=== PATIENT | male | born 1950 | race Caucasian/White ===

== ENCOUNTER → 2016-06-06 | Outpatient (CLI) | payer MEDICARE | END | disposition home or self-care (01) | LOC: PCVCIMAG 10:39 | PROVIDERS: ATTEND Internal Medicine Cardiovascular Disease | DX: I42.9 Cardiomyopathy, unspecified (principal); I10 Essential (primary) hypertension; E78.00 Pure hypercholesterolemia, unspecified; E11.9 Type 2 diabetes mellitus without complications; R60.9 Edema, unspecified | CPT/HCPCS: 93306; G0463 ==

== ENCOUNTER → 2016-11-18 | Outpatient (CLI) | payer MEDICARE ==
--- NOTE | 2016-11-18 12:54 | PCVCIMAG ---
APPROVED REPORT Study performed: 11/18/2016 09:45:03 EXAM: Comprehensive 2D, Doppler, and color-flow Echocardiogram Patient Location: Echo lab Status: routine Other Information Study Quality: Adequate Risk Factors: Cardiac Risk Factors: HTN Indications Diabetes HOCM 2D Dimensions LVEF(%): 52.59 (>50%) IVSd: 13.97 (7-11mm) LVDd: 43.95 mm PWd: 12.30 (7-11mm)Ascending Ao: 34.00 (22-36mm) LVDs: 32.16 (25-40mm) Left Atrium: 44.01 (27-40mm) Aortic Root: 26.45 mm LV Single Plane 4CH: 59.19 % LV Single Plane 2CH: 56.72 %Hendrix's LVEF: 57.96 % Biplane EF: 58.1 % Volumes Left Atrial Volume (Systole) Single Plane 4CH: 78.58 mLSingle Plane 2CH: 79.98 mL LA ESV Index: 40.00 mL/m2 Aortic Valve AoV Peak Deric.: 1.43 m/s AO Peak Gr.: 8.17 mmHgLVOT Max P.56 mmHg LVOT Max V: 0.94 m/s Mitral Valve E/A Ratio: 0.9 MV Decel. Time: 220.52 ms MV E Max Deric.: 0.83 m/s MV A Deric.: 0.95 m/s MV PHT: 63.95 ms IVRT: 110.73 ms Pulmonary Valve PV Peak Deric.: 0.75 m/sPV Peak Gr.: 2.25 mmHg Pulmonary Vein P Vein S: 0.78 m/sP Vein A: 0.30 m/s P Vein D: 0.74 m/sP Vein A Dur.: 141.9 msec P Vein S/D Ratio: 1.05 Tricuspid Valve TR Peak Deric.: 2.72 m/s TR Peak Gr.: 29.59 mmHg Left Ventricle The left ventricle is normal size. There is normal LV segmental wall motion. Mild concentric left ventricular hypertrophy. Left ventricular systolic function is normal. The left ventricular ejection fraction is within the normal range. LVEF is 55-60%. Grade I - abnormal relaxation pattern. Right Ventricle The right ventricle is normal size. The right ventricular systolic function is normal. Atria Left atrium is moderately dilated. The right atrium size is normal. Aortic Valve The aortic valve is normal in structure. No aortic regurgitation is present. There is no aortic valvular stenosis. Mitral Valve The mitral valve is normal in structure. Mild mitral regurgitation. No evidence of mitral valve stenosis. Tricuspid Valve The tricuspid valve is normal in structure. Mild tricuspid regurgitation with PAP of 37 mmHg. Pulmonic Valve The pulmonary valve is normal in structure. There is no pulmonic valvular regurgitation. Great Vessels The aortic root is normal in size. IVC is normal in size and collapses with >50% inspiration Pericardium There is no pericardial effusion. <Conclusion> The left ventricle is normal size. Mild concentric left ventricular hypertrophy. Left ventricular systolic function is normal. Grade I - abnormal relaxation pattern. The right ventricle is normal size. Left atrium is moderately dilated. The aortic valve is normal in structure. Mild mitral regurgitation. Mild tricuspid regurgitation with PAP of 37 mmHg.
== END | disposition home or self-care (01) ==
LOC: PCVCIMAG 09:43
PROVIDERS: ATTEND Internal Medicine Cardiovascular Disease
DX: I08.1 Rheumatic disorders of both mitral and tricuspid valves (principal); I42.9 Cardiomyopathy, unspecified; E78.00 Pure hypercholesterolemia, unspecified; I49.3 Ventricular premature depolarization; I12.9 Hypertensive chronic kidney disease with stage 1 through stage 4 chronic kidney disease, or unspecified chronic kidney disease; E11.22 Type 2 diabetes mellitus with diabetic chronic kidney disease; N18.3 Chronic kidney disease, stage 3 (moderate); Z79.82 Long term (current) use of aspirin; Z79.84 Long term (current) use of oral hypoglycemic drugs
CPT/HCPCS: 93005; 93306; G0463

== ENCOUNTER → 2017-04-28 | Outpatient (CLI) | payer MEDICARE | END | disposition home or self-care (01) | LOC: PCVCCLINIC 10:27 | DX: I10 Essential (primary) hypertension (principal); I42.9 Cardiomyopathy, unspecified; E78.00 Pure hypercholesterolemia, unspecified; R60.9 Edema, unspecified; Z79.82 Long term (current) use of aspirin; Z79.899 Other long term (current) drug therapy; Z79.84 Long term (current) use of oral hypoglycemic drugs | CPT/HCPCS: 93005; G0463 ==

== ENCOUNTER → 2018-03-31 | Outpatient (CLI) | payer MEDICARE ==
--- NOTE | 2018-03-31 13:29 | PCVCIMAG ---
APPROVED REPORT Imaging Protocol: Rest Tc-99m/Stress Tc-99m 1 day Study performed: 03/31/2018 11:09:17 Indication: Cardiomyopathy Patient Location: Out-Patient Stress Nurse: Smitha Vargas RN, Reina Mujica RN [place] Tech:Johana Hernandez [facility] Ht: 5 ft 8 in Wt: 226 lbs BSA: 2.15 m2 HR: 87 bpm BP: 150/83 mmHg BMI: 34.35 Rhythm: Sinus Rhythm, Inf ST & T Abn Medical History Medical History: HTN, Hyperlipidemia, Diabetes, Age Medications: ASA, Atorvastatin, Lisinopril-HCTZ, Metformin, Metoprolol, Actos, Januvia Allergies: No known drug allergies Pretest Chest Pain Characteristics: No chest pain Exercise History: Physically active Resting Data Rest SPECT myocardial perfusion imaging was performed in supine position 45 minutes following the intravenous injection of 10.9 mCi of Tc-99m Sestamibi. Time of rest injection: 1000 Date: 03/31/2018 Administration Route: IV Administration Site: Right Hand Exercise Stress At peak stress, the patient was injected intravenously with 31.2mCi of Tc-99m Sestamibi. Time of stress injection: 1200 Administration Route: IV Administration Site: Right Hand Patient continued to exercise for 45 minute(s). The images were gated to evaluate regional wall motion and calculate left ventricular ejection fraction. Stress Test Details Stress Test: Exercise stress testing was performed using a Stephon protocol. HRMax Heart Rate (APMHR): 151 bpm Resting HR: 87 bpmTarget HR (85% APMHR): 128 bpm Max HR Achieved: 164 bpm % of APMHR: 108 Recovery HR: 100 bpm BP Resting BP: 150/83 mmHg Max BP: 210/100 mmHg Recovery BP: 153/96 mmHg BP response to stress: Abnormal hypertensive response to stress. ECG Resting ECG: Sinus Rhythm, Inf ST & T Abn Stress ECG: Sinus Rhythm, Inf ST & T Abn ST Change: Nondiagnostic resting ST abnormalities Recovery ECG: Sinus Rhythm, Inf ST & T Abn Clinical Reason for Termination: Dyspnea, Fatigue, High Blood Pressure Stress Symptoms: Dyspnea Exercise duration: 6 min 00 sec Exercise capacity: 7 METs Overall Exercise Capacity for Age: Average Scale: Active Angina Score: None Symptoms resolved during recovery. Study Quality Study: Good Study Data Post stress, the left ventricular ejection was 77%.. Perfusion Normal left ventricular perfusion. Normal perfusion on both the stress and rest images. Wall Motion Normal left ventricular wall motion. Nuclear Conclusion ECG Findings: non-diagnostic Clinical Findings: negative for ischemia Nuclear Findings: negative for ischemia Exercise Capacity: normal Left Ventricular Function: normal Risk Study: low This study is of low probability for inducible ischemia or prior infarct. Normal global and segmental LV systolic function.
== END | disposition home or self-care (01) ==
LOC: EDSTATUS 03-30 07:39 → PCVCIMAG 09:56
PROVIDERS: ATTEND Internal Medicine Cardiovascular Disease
DX: I11.9 Hypertensive heart disease without heart failure (principal); I10 Essential (primary) hypertension; E78.00 Pure hypercholesterolemia, unspecified; E11.9 Type 2 diabetes mellitus without complications; E78.5 Hyperlipidemia, unspecified; I25.5 Ischemic cardiomyopathy; Z79.82 Long term (current) use of aspirin; Z79.84 Long term (current) use of oral hypoglycemic drugs
CPT/HCPCS: 78452; 93017; A9500; G0463

== ENCOUNTER → 2019-04-06 | Outpatient (CLI) | payer MEDICARE ==
--- NOTE | 2019-04-06 13:37 | PCVCIMAG ---
APPROVED REPORT Study performed: 04/06/2019 12:54:04 EXAM: Comprehensive 2D, Doppler, and color-flow Echocardiogram Patient Location: Echo lab Status: routine BSA: 2.13 HR: 76 bpmBP: 126/72 mmHg Rhythm: NSR w/ PVCs Other Information Study Quality: Adequate Risk Factors: Cardiac Risk Factors: HTN, DM Indications Hypertrophic Cardiomyopathy 2D Dimensions IVSd: 16.12 (7-11mm) LVDd: 39.74 mm PWd: 14.88 (7-11mm)Ascending Ao: 33.16 (22-36mm) LVDs: 23.88 (25-40mm) Left Atrium: 39.84 (27-40mm) Aortic Root: 31.35 mm LV Single Plane 4CH: 56.86 % LV Single Plane 2CH: 59.32 % Biplane EF: 58.3 % Volumes Left Atrial Volume (Systole) Single Plane 4CH: 88.65 mLSingle Plane 2CH: 83.17 mL LA ESV Index: 40.00 mL/m2 Aortic Valve AoV Peak Deric.: 1.33 m/s AO Peak Gr.: 7.03 mmHgLVOT Max P.09 mmHg LVOT Max V: 0.99 m/s Mitral Valve E/A Ratio: 0.9 MV Decel. Time: 233.31 ms MV E Max Deric.: 0.80 m/s MV A Deric.: 0.90 m/s IVRT: 103.81 ms Pulmonary Valve PV Peak Deric.: 0.82 m/sPV Peak Gr.: 2.70 mmHg Pulmonary Vein P Vein S: 0.53 m/sP Vein A: 0.36 m/s P Vein D: 0.58 m/sP Vein A Dur.: 159.2 msec P Vein S/D Ratio: 0.91 Tricuspid Valve TR Peak Deric.: 2.81 m/s TR Peak Gr.: 31.50 mmHg Left Ventricle The left ventricle is normal size. There is normal LV segmental wall motion. Mild concentric left ventricular hypertrophy. Left ventricular systolic function is normal. The left ventricular ejection fraction is within the normal range. LVEF is 60%. Grade I - abnormal relaxation pattern. Right Ventricle The right ventricle is normal size. The right ventricular systolic function is normal. Atria Left atrium is mildly dilated. Right atrium is mildly dilated. Aortic Valve Moderate aortic valve sclerosis. No aortic regurgitation is present. There is no aortic valvular stenosis. Mitral Valve The mitral valve is normal in structure. Mild mitral regurgitation. No evidence of mitral valve stenosis. Tricuspid Valve The tricuspid valve is normal in structure. Mild tricuspid regurgitation with PAP of 39 mmHg. Pulmonic Valve The pulmonary valve is normal in structure. Trace pulmonic regurgitation. Great Vessels The aortic root is normal in size. IVC is normal in size and collapses >50% with inspiration. Pericardium There is no pericardial effusion. There is no pleural effusion. <Conclusion> The left ventricle is normal size. Mild concentric left ventricular hypertrophy. Left ventricular systolic function is normal. Grade I - abnormal relaxation pattern. The right ventricle is normal size. Left atrium is mildly dilated. Moderate aortic valve sclerosis. Mild mitral regurgitation. Mild tricuspid regurgitation with PAP of 39 mmHg.
== END | disposition home or self-care (01) ==
LOC: PCVCIMAG 12:41
PROVIDERS: ATTEND Internal Medicine Cardiovascular Disease
DX: I08.3 Combined rheumatic disorders of mitral, aortic and tricuspid valves (principal); E78.5 Hyperlipidemia, unspecified; I13.10 Hypertensive heart and chronic kidney disease without heart failure, with stage 1 through stage 4 chronic kidney disease, or unspecified chronic kidney disease; E11.22 Type 2 diabetes mellitus with diabetic chronic kidney disease; N18.3 Chronic kidney disease, stage 3 (moderate); I42.2 Other hypertrophic cardiomyopathy; E78.00 Pure hypercholesterolemia, unspecified; Z79.84 Long term (current) use of oral hypoglycemic drugs; Z79.899 Other long term (current) drug therapy; Z79.82 Long term (current) use of aspirin
CPT/HCPCS: 93005; 93306; G0463